=== PATIENT | male | born 1980 | race Caucasian/White ===

== ENCOUNTER 2017-03-14 00:37 | Emergency (ER) | payer SELFPAY ==
[~2017-03-14] VITALS: Ht 177.8 cm; Wt 120.5 kg
[~2017-03-14 00:37] MED LIST: NOCURR
[2017-03-14] MEDS ORDERED: AMOXICILLIN TRIHYDRATE 250 MG CAPSULE PO ONE (03:15)
[2017-03-14] MEDS ORDERED: ONDANSETRON HCL 4 MG TABLET PO ONE (03:15)
[2017-03-14] MEDS ORDERED: HYDROCODONE/ACETAMINOPHEN 5-325 MG TABLET PO ONE (03:15)
[2017-03-14 03:20] VITALS: BP 141/80
== END 2017-03-14 03:23 | disposition home or self-care (01) ==
LOC: EMS 00:38
DX: H60.91 Unspecified otitis externa, right ear (principal); F11.90 Opioid use, unspecified, uncomplicated; F12.90 Cannabis use, unspecified, uncomplicated; F15.90 Other stimulant use, unspecified, uncomplicated
CPT/HCPCS: 99284; Q0162

== ENCOUNTER 2017-08-19 11:50 | Emergency (ER) | payer SELFPAY ==
[~2017-08-19] VITALS: Ht 180.3 cm; Wt 120.5 kg
[2017-08-19] MEDS ORDERED: IBUPROFEN 800 MG TABLET PO ONE (16:00)
[2017-08-19 16:14] VITALS: BP 135/85
== END 2017-08-19 16:20 | disposition home or self-care (01) ==
LOC: EMS 11:50
DX: M79.671 Pain in right foot (principal); R03.0 Elevated blood-pressure reading, without diagnosis of hypertension; F11.90 Opioid use, unspecified, uncomplicated; F12.90 Cannabis use, unspecified, uncomplicated; F15.90 Other stimulant use, unspecified, uncomplicated; W17.2XXA Fall into hole, initial encounter; Y93.89 Activity, other specified; Y92.89 Other specified places as the place of occurrence of the external cause; Y99.8 Other external cause status
CPT/HCPCS: 99284

== ENCOUNTER 2023-04-05 11:00 | Emergency (ER) | payer MEDICAID ==
[~2023-04-05] VITALS: Ht 180.3 cm; Wt 109.1 kg
[2023-04-05 11:15] VITALS: TEMP 99.1
[2023-04-05 11:24] LABS: COVID AG,FIA SOURCE NASAL SWAB
[2023-04-05 11:45] LABS: SARS-COV2 (COVID) ANTIGEN,FIA Negative (Negative)
[2023-04-05 11:48] LABS: RESPIRATORY SYNCYTIAL VIRS,FIA POSITIVE (Negative)
[2023-04-05 11:49] LABS: INFLUENZA TYPE A NEGATIVE FOR TYPE A (NEGATIVE); INFLUENZA TYPE B NEGATIVE FOR TYPE B (NEGATIVE)
[2023-04-05] MEDS ORDERED: ACETAMINOPHEN 500 MG TABLET PO ONE (14:30)
[2023-04-05] MEDS ORDERED: ALBUTEROL SULFATE HFA 90 MCG/PUFF 8 GM INHALER IH ONE (14:30)
[2023-04-05] MEDS ORDERED: CORTSUSP AD (14:57)
[2023-04-05] MEDS ORDERED: IBUP-1554 PO (14:57)
[2023-04-05] MEDS ORDERED: AZIT250T9 PO (14:57)
[2023-04-05 15:15] VITALS: BP 135/85
[2023-04-05 15:16] VITALS: PULSE 86; RESP 16; O2SAT 96
[2023-04-05 15:17] VITALS: PULSE 87; RESP 16; O2SAT 98
== END 2023-04-05 17:03 | disposition home or self-care (01) ==
LOC: EMS 11:13
DX: J12.1 Respiratory syncytial virus pneumonia (principal); M20.011 Mallet finger of right finger(s); H66.91 Otitis media, unspecified, right ear; F12.90 Cannabis use, unspecified, uncomplicated; F15.90 Other stimulant use, unspecified, uncomplicated; Z20.822 Contact with and (suspected) exposure to COVID-19
CPT/HCPCS: 99284; 71045; 87426; 82962; 87420; 87804; 94640; 73140; 29130; J3535

== ENCOUNTER 2023-04-09 07:22 | Emergency (ER) | payer BC, MEDICAID ==
[~2023-04-09] VITALS: Ht 180.3 cm; Wt 109.1 kg
[~2023-04-09 07:22] MED LIST changes: +AZIT250T9 PO; +CORTSUSP AD; +IBUP-1554 PO
[2023-04-09 07:29] VITALS: TEMP 98.1
[2023-04-09 08:00] VITALS: BP 128/80; PULSE 75; RESP 18
[2023-04-09] MEDS ORDERED: METH-659 PO (08:25)
[2023-04-09] MEDS ORDERED: PERCT PO (08:26)
== END 2023-04-09 08:36 | disposition home or self-care (01) ==
LOC: EMS 07:29
DX: M54.6 Pain in thoracic spine (principal); F12.90 Cannabis use, unspecified, uncomplicated; F15.90 Other stimulant use, unspecified, uncomplicated
CPT/HCPCS: 99281; Z7502

== ENCOUNTER 2023-04-11 13:23 | Emergency (ER) | payer BC, MEDICAID ==
[~2023-04-11] VITALS: Ht 177.8 cm; Wt 109.1 kg
[~2023-04-11 13:23] MED LIST changes: +METH-659 PO; +PERCT PO
[2023-04-11 13:52] VITALS: TEMP 98.9
[2023-04-11 14:43] LABS: BASOPHILS % (AUTO) 0.4 % (0.0-2.0); EOSINOPHILS % (AUTO) 2.3 % (1.0-6.0); HEMATOCRIT 41.6 % (41-53); HEMOGLOBIN 14.3 g/dL (13.5-17.5); LYMPHOCYTES # (AUTO) 1.9 K/uL (1.0-4.8); LYMPHOCYTES % (AUTO) 33.4 % (22.0-44.0); MEAN CORPUSCULAR HEMOGLOBIN 30.6 pg (26.0-34.0); MEAN CORPUSCULAR HGB CONC 34.4 G/dL (31.0-37.0); MEAN CORPUSCULAR VOLUME 89 fL (80-100); MONOCYTES # (AUTO) 0.4 K/uL (0.1-1.0); MONOCYTES % (AUTO) 7.7 % (2.0-9.0); NEUTROPHILS # (AUTO) 3.2 K/uL (1.8-7.7); NEUTROPHILS % (AUTO) 56.2 % (40.0-70.0); PLATELET COUNT (AUTO) 246 K/uL (150-450); RED BLOOD CELL COUNT(AUTO) 4.68 MIL/uL (4.50-5.90); RED CELL DISTRIBUTION WIDTH 12.5 % (11.5-14.5); WHITE BLOOD COUNT (AUTO) 5.7 K/uL (4.5-11.0)
[2023-04-11 15:06] LABS: ANION GAP 6 mmol/L (8-16); CARBON DIOXIDE 29 mmol/L (22-29); CHLORIDE 101 mmol/L (98-107); CREATININE 0.74 mg/dL (0.60-1.30); GLOMERULAR FILTR. RATE CALC > 60 mL/min (>60); GLUCOSE,RANDOM 244 mg/dL (70-110); POTASSIUM 3.9 mmol/L (3.5-5.1); SODIUM SERUM 136 mmol/L (136-145); UREA NITROGEN, BLOOD 12 mg/dL (7-18)
[2023-04-11 15:10] LABS: TROPONIN I-HIGH SENSITIVITY 5 ng/L (<76)
[2023-04-11 15:14] LABS: ALANINE AMINOTRANSFERASE 21 U/L (12-78); ALBUMIN 3.8 g/dL (3.4-5.0); ALKALINE PHOSPHATASE 70 U/L (46-116); ASPARTATE AMINOTRANSFERASE 17 U/L (15-37); BILIRUBIN,TOTAL 0.5 mg/dL (0.1-1.0); TOTAL PROTEIN, SERUM 7.3 g/dL (6.4-8.2)
[2023-04-11 15:42] LABS: LIPASE 97 U/L (16-77)
[2023-04-11] MEDS ORDERED: IOHEXOL 350 MG/ML 100 ML VIAL ONE (17:26)
[2023-04-11] MEDS ORDERED: SODIUM CHLORIDE 0.9% 100 ML ONE (17:26)
[2023-04-11 17:41] LABS: TROPONIN I-HIGH SENSITIVITY 6 ng/L (<76)
[2023-04-11] MEDS ORDERED: METH-659 PO (19:26)
[2023-04-11] MEDS ORDERED: PERCT PO (19:26)
[2023-04-11 19:50] VITALS: BP 126/72; PULSE 80; RESP 16
== END 2023-04-11 19:51 | disposition home or self-care (01) ==
LOC: EMS 13:25
DX: M20.011 Mallet finger of right finger(s) (principal); R07.89 Other chest pain; F12.90 Cannabis use, unspecified, uncomplicated; F15.90 Other stimulant use, unspecified, uncomplicated
CPT/HCPCS: 99285; 71275; 71045; 80053; 82962; 83690; 84484; 85025; 36415; 93005; 29130; Q9967; J7050

== ENCOUNTER 2023-05-09 14:17 | Emergency (ER) | payer BC, MEDICAID ==
[~2023-05-09] VITALS: Ht 180.3 cm; Wt 106.8 kg
[~2023-05-09 14:17] MED LIST changes: -AZIT250T9 PO
[2023-05-09 14:25] VITALS: BP 157/85; PULSE 94; RESP 18; TEMP 98.4
[2023-05-09] MEDS ORDERED: METF-1211 PO ×2 (14:29→15:05)
[2023-05-09] MEDS ORDERED: AMLO2.5T96 PO (14:29)
[2023-05-09] MEDS ORDERED: LISI-892 PO (14:29)
[2023-05-09] MEDS ORDERED: IBUP-1554 PO (15:05)
[2023-05-09] MEDS ORDERED: GLIP5TAB16 PO (15:05)
[2023-05-09] MEDS ORDERED: CORTSUSP AD (15:05)
[2023-05-09] MEDS ORDERED: ACET-66 PO (15:05)
== END 2023-05-09 15:21 | disposition home or self-care (01) ==
LOC: EMS 14:26
DX: H60.91 Unspecified otitis externa, right ear (principal); E11.65 Type 2 diabetes mellitus with hyperglycemia; E78.00 Pure hypercholesterolemia, unspecified; I10 Essential (primary) hypertension; F12.90 Cannabis use, unspecified, uncomplicated; F15.90 Other stimulant use, unspecified, uncomplicated
CPT/HCPCS: 82962; 99283

== ENCOUNTER 2024-10-21 12:26 | Emergency (ER) | payer BC, MEDICAID ==
[~2024-10-21] VITALS: Ht 180.3 cm; Wt 111.4 kg
[~2024-10-21 12:26] MED LIST changes: +AMOX-457 PO; -CORTSUSP AD; +GLIP5TAB16 PO; -IBUP-1554 PO; +LISI-892 PO; +METF-1211 PO; -METH-659 PO; -NOCURR; -PERCT PO
[2024-10-21 12:33] VITALS: TEMP 98
[2024-10-21 12:37] VITALS: BP 150/89; PULSE 84; RESP 17; O2SAT 98
[2024-10-21] MEDS: SODIUM CHLORIDE 0.9% 1,000 ML IV ONE (13:09)
[2024-10-21 13:12] LABS: ANION GAP 9 mmol/L (8-16); CALCIUM, TOTAL 9.1 mg/dL (8.8-10.5); CARBON DIOXIDE 27 mmol/L (22-29); CHLORIDE 101 mmol/L (98-107); CREATININE 1.05 mg/dL (0.60-1.30); GLOMERULAR FILTR. RATE CALC > 60 mL/min (>60); GLUCOSE,RANDOM 391 mg/dL (70-110); POTASSIUM 4.1 mmol/L (3.5-5.1); SODIUM SERUM 137 mmol/L (136-145); UREA NITROGEN, BLOOD 11 mg/dL (7-18)
[2024-10-21] MEDS: ACETAMINOPHEN 500 MG TABLET PO ONE (13:15)
[2024-10-21] MEDS: INSULIN REGULAR, HUMAN 100 UNITS/ML IVP ONE (13:35)
[2024-10-21] MEDS ORDERED: AMOX-457 PO (13:49)
[2024-10-21] MEDS: PERTUSS(ACELL),DIPH,TET/PF 0.5 ML SYRINGE [ADULT] IM. ONE (14:09)
== END 2024-10-21 14:33 | disposition home or self-care (01) ==
LOC: EMS 12:29
DX: S62.306A Unspecified fracture of fifth metacarpal bone, right hand, initial encounter for closed fracture (principal); E11.65 Type 2 diabetes mellitus with hyperglycemia; E78.00 Pure hypercholesterolemia, unspecified; F12.90 Cannabis use, unspecified, uncomplicated; I10 Essential (primary) hypertension; Z79.899 Other long term (current) drug therapy; Z87.442 Personal history of urinary calculi; Z88.6 Allergy status to analgesic agent; Z91.119 Patient's noncompliance with dietary regimen due to unspecified reason; W19.XXXA Unspecified fall, initial encounter; Y93.89 Activity, other specified; Y92.89 Other specified places as the place of occurrence of the external cause; Y99.8 Other external cause status
CPT/HCPCS: 99284; 96374; 96361; 80048; 82962; 36415; 73130; 90715; 90471; 29125; J1815; J7030